=== PATIENT | female | born 1995 | race Hispanic/Latino ===

== ENCOUNTER 2018-08-21 09:12 | Observation (INO) | payer OTHER ==
[2018-08-10 13:23] VITALS: BMI 21.4
[2018-08-21] MEDS ORDERED: Chlorhexidine Gluconate 2OZ GEL TP ONE (09:44)
[2018-08-21] MEDS ORDERED: Silver Nitrate Topical - Stick ONE (09:44)
[2018-08-21 10:18] LABS: BASO % 0.8 % (0.0-2.0); EOS % 0.6 % (0.0-4.0); HEMOGLOBIN 13.5 g/dL (12.0-16.0); LYMPH # 2.3 K/uL (1.0-4.3); LYMPH % 39.1 % (20.0-40.0); MEAN CELL VOLUME 81.4 fl (81.0-99.0); MEAN CORPUSCULAR HGB CONC 33.2 g/dL (33.0-37.0); MEAN PLATELET VOLUME 8.9 fl (7.2-11.7); MONO # 0.4 K/uL (0.0-0.8); MONO % 7.4 % (0.0-10.0); NEUT # 3.1 K/uL (1.8-7.0); NEUT % 52.1 % (50.0-75.0); RBC 4.98 Mil/uL (3.80-5.20); RED CELL DISTRIBUTION WIDTH 15.1 % (11.5-14.5); WHITE BLOOD COUNT 5.9 K/uL (4.8-10.8)
[2018-08-21] MEDS ORDERED: Dexamethasone 4 mg/1 ml ONE (10:21)
[2018-08-21] MEDS ORDERED: Succinylcholine 200 mg/10 ml Inj IV ONE (10:22)
[2018-08-21] MEDS ORDERED: Rocuronium 10 mg/ml (5 ml) ONE (10:22)
[2018-08-21] MEDS ORDERED: Propofol 10 mg/ml Inj (20 ML) ONE (10:22)
[2018-08-21] MEDS ORDERED: Lidocaine 4% (Laryng-O-Jet) Kit MM ONE (10:22)
[2018-08-21] MEDS ORDERED: Phenylephrine 10 mg/ml Inj ONE (10:24)
[2018-08-21] MEDS ORDERED: Lactated Ringer's 1,000 ML IV ONE ×3 (11:25→12:15)
[2018-08-21] MEDS ORDERED: Midazolam 2 MG/2 ML VIAL ONE (11:29)
[2018-08-21] MEDS ORDERED: Neostigmine 1:1000 (1 mg/ml) Inj ONE (11:49)
[2018-08-21] MEDS ORDERED: Bupivacaine HCl 0.5% PF (30 ml) Inj ONE (11:51)
[2018-08-21] MEDS ORDERED: Bupivacaine 0.25% Inj(30mL) IJ ONE ×2 (11:52→12:05)
[2018-08-21] MEDS ORDERED: EPINEPHrine 1 mg/ml (1:1000) Inj ONE (11:52)
[2018-08-21] MEDS ORDERED: Lactated Ringer's 500 ML IV ONE (12:19)
[2018-08-21] MEDS ORDERED: Sodium Chloride 0.9% 1,000 ML IV ONE (13:22)
[2018-08-21] MEDS ORDERED: Sodium Chloride 0.9% 500 ML IV ONE (13:30)
[2018-08-21] MEDS ORDERED: Lactated Ringer's 1,000 ML IV SCH ×2 (13:45→20:03)
--- NOTE | 2018-08-21 14:25 | PCM.SURG1 ---
Surgeon's Initial Post Op Note - Surgeon's Notes Surgeon: Dr. Cross Metal Storage Worker: Dr. Kruse, Dr. Sal PGY-3 Type of Anesthesia: General Endo Anesthesia Administered By: Dr. Chaudhari Pre-Operative Diagnosis: Endometriosis Operative Findings: See operative report Post-Operative Diagnosis: Same Operation Performed: Robotic Assisted laparoscopic Excision of Endometriosis Specimen/Specimens Removed: Endometrial deposits Estimated Blood Loss: EBL {In ML}: 10 Blood Products Given: N/A Drains Used: No Drains Post-Op Condition: Good Date of Surgery/Procedure: 08/21/18 Time of Surgery/Procedure: 14:25
[2018-08-21] MEDS ORDERED: Oxycodone/Acetaminophen 5/325 mg Tab PO PRN (14:26)
--- NOTE | 2018-08-21 18:12 | PCM.OP ---
Operative Report - Operative Report Date of Surgery/Procedure: 08/21/18 Time of Surgery/Procedure: 12:00 Surgeon: Dr. Marcos Kruse Career Discovery Teacher: Dr. johnny Cross Anesthesia/Sedation: general/Dr. Chaudhari Pre-Operative Diagnosis: abdominal pain and ebndometriosis Post-Operative Diagnosis: same with intestinal involvement Indication for Surgery: as above Operative Findings: as above Procedure/Operation Description: 1-Excsion perirectal endometriosis (times three). Brief History: This 23 year old woman was brought to the OR by Dr. Cross when he noted involvement of the intestines with endometriosis and requested intraoperative consultation by general surgery. Description of the Procedure: The patient was already brought to the OR by Dr. Cross (separate dictation). After taking control of the robotic console the first lesion in the rectum was incised circumferentially with electrocautery the lesion was excised with blunt and sharp dissection and was sent en-bloc to pathology as a separate specimen. The other two lesions were excised in a similar fashion and sent separately to pathology. Hemostasis was deemed adequate. The case was turned over to Dr. Cross (separate dictation). Estimated Blood Loss: 4 cc Complications: none Discharge & Condition: stable
[2018-08-21] MEDS: ceFAZolin IV 1 gm in Dextrose 1 GM/50 ML BAG IVPB SCH (18:38)
[2018-08-21] MEDS ORDERED: oxyCODONE 5 mg Immediate Release Tab PO PRN (20:59)
[2018-08-21 23:53] VITALS: RESP 20
[2018-08-22] MEDS ORDERED: HYDROmorphone 0.5 mg/0.5 ml ISec IVP ONE (00:45)
[2018-08-22] MEDS: ceFAZolin IV 1 gm in Dextrose 1 GM/50 ML BAG IVPB SCH (03:59)
--- NOTE | 2018-08-22 07:24 | PCM.ANESB5 ---
Transverse Abdominis Block - Transverse Abdominis Plane Date of Procedure: 08/21/18 Anesthesiologist: Watson Pre-Procedure Diagnosis: Endometriosis Post-Procedure Diagnosis: Same Procedure Performed: Transverse Abdominis Plane Nerve Block Left, Transverse Abdominis Plane Nerve Block Right - Procedure Transverse Abdominis Plane Nerve Block: The procedure was explained to the patient that it is for post-operative pain management and would be performed after surgery. Consent was obtained prior to surgery after a thorough discussion with the patient regarding the benefits and possible complications of transverse abdominis plane block. After the surgery had concluded and before the patient emerged from general anesthesia, time-out was held with the circulating nurse to re-confirm the appropriate block. With the patient in supine position, the ultrasound probe was placed transverse to the abdominal wall at the mid-axillary line above the iliac crest of the appropriate side. The skin, subcutaneous tissue, fat, external oblique muscle, internal oblique muscle, and the transverse abdominis muscle were identified. The general area of the block site was then prepped with Betadine three times. At this point, a # 21-gauge Stimuplex 4-inch needle was inserted posterior to and in plane with the ultrasound probe and directed anteriorly. Needle was advanced under direct ultrasound visualization until it reached the plane between the internal oblique and transverse abdominis muscles. After appropriate placement, 2mL of local anesthetic solution was injected. When the transverse abdominis plane was observed expanding in an ellipsoid way, the rest of the solution was slowly injected. A total of ___20___ mL of __0.25___ % _bupivacaine with 1:200,000 epinephrine was used for this block. The needle was then removed and sterile dressing was applied. Similarly, the same procedure was performed on the other side using the same medications. The patient had stable vital signs throughout and had no untoward complications after emergence from general anesthesia in the recovery room.
[2018-08-22 08:36] VITALS: BP 115/79; PULSE 82; TEMP 98.6; O2SAT 100
--- NOTE | 2018-08-22 11:27 | CP.PCM.PN ---
Subjective - Date & Time of Evaluation Date of Evaluation: 08/22/18 Time of Evaluation: 11:27 - Subjective Subjective: Patient seen and examined at bedside comfortable. Pain is well controlled. No acute events overnight. Tolerated breakfast. Denies CP/SOB/N/V/D/fever/dizziness Objective - Vital Signs/Intake and Output Vital Signs (last 24 hours): Temp Pulse Resp BP Pulse Ox 98.6 F 82 20 115/79 100 08/22/18 08:35 08/22/18 08:35 08/22/18 08:35 08/22/18 08:35 08/22/18 08:35 - Medications Medications: Current Medications Cefazolin Sodium/Dextrose (Ancef Iv 1 Gm Duplex) 1 gm in 50 mls @ 50 mls/hr IVPB Q8H [facility]; Protocol Last Admin: 08/22/18 03:59 Dose: 50 mls/hr Ketorolac Tromethamine (Toradol) 30 mg IVP Q6 PRN PRN Reason: Pain, moderate (4-7) Last Admin: 08/22/18 08:04 Dose: 30 mg Ondansetron HCl (Zofran Inj) 4 mg IVP Q4 PRN PRN Reason: Nausea/Vomiting Last Admin: 08/21/18 21:51 Dose: 4 mg Tramadol HCl (Ultram) 50 mg PO Q4 PRN PRN Reason: Pain, severe (8-10) Last Admin: 08/22/18 11:23 Dose: 50 mg - Labs Labs: 08/21/18 10:11 - GI/Abdominal Exam GI & Abdominal Exam: Soft, Tenderness (mildly), Normal Bowel Sounds Additional comments: portal site CDI with opsite dressings, mild ecchymosis inferior to umbilical port Assessment and Plan (1) Endometriosis Assessment & Plan: POD#1 s/p robotic removal of endometriosis tissue -Stable for discharge to home -discharge with Rx provided -encouraged OOB -f/u in office 2 weeks -no diet restrictions -above d/w Dr. Cross in agreement Status: Acute
--- NOTE | 2018-08-28 15:23 | OP ---
PROCEDURE DATE: 08/21/2018 SURGEON: Sheldon Cross MD RESIDENT DOCTOR: Marcos Kruse MD, Qazi Sadaf DO ANESTHESIOLOGIST: Kiran Chaudhari MD TYPE OF ANESTHESIA: General endotracheal. PREOPERATIVE DIAGNOSES: 1. Incapacitating pelvic pain. 2. Incapacitating abdominal pain. 3. Abnormal uterine bleeding. 4. History of pelvic endometriosis. 5. History of previously failed medical and surgical therapy. 6. Gastrointestinal and genitourinary symptoms. 7. Rule out interstitial cystitis. 8. History of severe endometriosis and pelvic adhesions POSTOPERATIVE DIAGNOSES: 1. Incapacitating pelvic pain. 2. Incapacitating abdominal pain. 3. Abnormal uterine bleeding. 4. History of pelvic endometriosis. 5. History of previously failed medical and surgical therapy. 6. History of severe endometriosis and pelvic adhesions. 7. Gastrointestinal and genitourinary symptoms. 8. 9. Mild ureteral distention. PROCEDURES PERFORMED: 1. Exam under anesthesia. 2. Video assisted hysteroscopy. 3. Cystoscopy. 4. Bilateral ureteral catheterization and injection of IC-Green dye. 5. Robotic da Deanna operative laparoscopy. 6. Treatment of endometriosis. 7. Excision of endometriosis. 8. Bilateral ureterolysis. 9. Bilateral ovariolysis. COMPLICATIONS: None. SAMPLES SENT: 1. Left Uterosacral l endometriosis. 2. Left periureteral endometriosis. 3. Right periureteral endometriosis. 4. Right uterosacral endometriosis. 5. Left and right ovarian fossa endometriosis. 6. Iliac endometriosis. 7. Posterior cervical endometriosis. 8. Rectal endometriosis, anterior. 9) Cul de sac endometriosis INDICATION FOR THE PROCEDURE AND CONSENT: The patient had a long history of pelvic pain, dysmenorrhea, dyspareunia, abdominal pain, and bladder pain. The patient had been thoroughly evaluated and counseled regarding the pros and cons of the procedure, the reasonable alternatives, and possible complications. She understood and accepted the risks involved. Literature was provided to the patient. The patient was understanding and given her history and per surgical exam, she was at high risk in an average patient. She accepted all the risks involved, and all the questions had been answered to her satisfaction. FINDINGS OF SURGERY: Genitalia: Normal external genitalia, cervix without lesion and polyps. Hysteroscopy: Hysteroscopy shows a clear uterine cavity with no polyps or masses noticed. Cystoscopy: The cystoscopy was performed to rule out endometriosis and also any interstitial cystitis and also injury. The bladder was normal with no evidence of stone, trigonitis, or cystitis. A positive jet flow was identified in both ureters. Laparoscopy: The upper abdomen appeared to be normal. Gallbladder was normal. Liver edges appeared to be normal. Ascending colon and transverse were normal. There was evidence of adhesions, fibrosis, and significant inflammatory changes of the rectovaginal and pelvic sidewalls. The appendix appeared to be surgically absent. Both fallopian tubes appeared to be patent, although there was evidence of inflammation on the serosal surface of both fallopian tubes, and there was slight conglutination of both fimbriated ends although they both appeared to be functional. There was also evidence of mild hydroureters. DESCRIPTION OF THE PROCEDURE: Initiation of the case: After adequate anesthesia was obtained, the patient was placed in the dorsal lithotomy position, and with extreme care, placement of the patient with hyperextension and hyperflexing of the hips. At this point, the patient was prepped and draped. The surgeon was gowned and gloved. A timeout was taken according to the hospital procedure and the procedure was started. At this point, we performed cystoscopy, bilateral ureteral catheterization. A cystoscope was inserted into the bladder under direct visualization and the bladder was visualized. The bladder was free of lesions and tumors. There was no evidence of interstitial cystitis, and there was only mild amount of trigonitis. At this point, both ureters were identified and appeared to be in their normal anatomical position. At this point, utilizing an open 5-Belgian open-ended catheter, the left ureter was catheterized all the way to the distal ureter, and 5 mL of IC-Green was injected into this ureter. Similarly, the contralateral ureter was catheterized all the way to the distal ureter, and 5 mL of IC-Green was injected into the distal ureter. At this point, the stents were removed, and the cystoscope was removed, and the 16-Belgian Clifford was inserted into the bladder. At this point, we proceeded with a hysteroscopy. A speculum was placed nto vagina, and the anterior lip of the cervix was grasped. The cervixwas dilated , and a hysteroscope was inserted into the cavity. The cavity appeared to be of normal size with no evidence of polyps, cysts, adenomyosis, or fibroids. At this point, we proceeded with placement of a trocar and docking of the da Deanna Xi robot. The surgeon was regowned and gloved, and open laparoscopy was performed by making incision in the umbilicus and the fascia was incised. The peritoneum was entered in a blunt fashion, and the cannula was inserted under direct visualization. The abdomen was insufflated, and under direct visualization, three additional ports were inserted in the left upper quadrant, left mid quadrant, and right upper quadrant. At this point, the da Deanna Xi robot was brought into the field and docked, and the instruments were inserted under direct visualization. All this with extreme care not to injure the bowel or another area. As per dictation, the upper abdomen appeared to be normal with no evidence of any lesions. At this point, we proceeded with a left ureterolysis. The ureter appeared to be dilated and was clearly identified utilizing IC-Green fluorescent technology. Anesthesia was made in the peritoneum at the top of the pelvic brim, and the incision was then carried down all the way opening the peritoneum all the way down from the pelvic brim, all the way down to the ovarian fossa, extending the incision below the ovary. It was a progressive dissection where the ureter was progressively lateralized and peritoneum was medialized, thus freeing the ureter all the way down to the cross of the uterine vessels. After this was done, the ureter was freed and lateralized, and a larger peritoneum which had been opened, was excised, and sent to pathology. At this point, with the aid of very slow process, I was able to elevate the ovary and proceed with ovariolysis. At this point, we proceeded with a right ureterolysis. The ureter was identified again utilizing fluorescent technology on the right hand side and retroperitoneal space was entered, and a full dissection was performed, entering the retroperitoneal space and dissecting the ureter, removing the ureter laterally and the peritoneum medially. A full dissection was performed all the way down to the ovarian fossa and the crossing of the uterine arteries. An area of peritoneum containing endometriosis was dissected and sent to Pathology. At this point, we proceeded with treatment of endometriosis and excision of endometriosis. On the left hand side, fibrosis,especially in the left ovarian fossa was excised. In a very progressive step by step fashion, we dissected off fibrosis containing endometriosis and freed up the whole area. The ureters which had been lateralized. Areas of fibrosis and endometriosis were also identified in the posterior cul-de-sac and inthe rectovaginal space which was also affected with endometriosis and fibrosis. At this point, we proceeded with the excision of perirectal endometriosis. The rectovaginal area had significant fibrosis and additional endometriosis was dissected from the posterior aspect of the uterus, and the rectovaginal space was entered at the level of the peritoneal reflection. All this done making sure that no damage to the rectum was performed. At this point, endometriosis was also excised from the right uterosacral area which also was affected by fibrosis and endometriosis. At this point, it was checked for hemostasis and appeared to be excellent. Both fallopian tubes were in good condition and patent. we checked for hemostasis and organ integrity and all was normal. At this point, the da Deanna Xi robot was removed. The abdomen was desufflated, and the incisions were closed in layers with 0 PDS for the fascia and 4-0 Monocryl for the skin. At the end of the procedure, all tips and instrument counts were correct. The patient tolerated the procedure well and was taken to the recovery room in excellent condition. SHELDON
== END 2018-08-22 13:15 | disposition home or self-care (01) ==
LOC: H.OPSURG 09:12 → H.PEDS 14:28 → H.OPSURG 15:37
PROVIDERS: ADMIT Obstetrics & Gynecology Reproductive Endocrinology; ATTEND Obstetrics & Gynecology Reproductive Endocrinology
DX: N80.5 Endometriosis of intestine (principal); N93.9 Abnormal uterine and vaginal bleeding, unspecified; N80.0 Endometriosis of uterus; N80.1 Endometriosis of ovary; N13.4 Hydroureter; N80.3 Endometriosis of pelvic peritoneum; N73.6 Female pelvic peritoneal adhesions (postinfective); N94.6 Dysmenorrhea, unspecified; N94.10 Unspecified dyspareunia; R39.89 Other symptoms and signs involving the genitourinary system
CPT/HCPCS: 36415; 45171; 58940; 58999; 85025; 86850; 86900; 88305; C1729; G0378; J0131; J0171; J0330; J0690; J1100; J1170; J1885; J2001; J2250; J2370; J2405; J2704; J2710; J2765; J3010; J7030; J7120